=== PATIENT | female | born 1990 | race Caucasian/White ===

== ENCOUNTER 2017-03-27 15:04 | Inpatient (IN) | payer MEDICAID ==
[~2017-03-27] VITALS: Ht 170.2 cm; Wt 92.9 kg
[~2017-03-27 15:04] MED LIST: PREN1TAB49 PO
--- NOTE | 2017-03-27 16:00 | TRIAGE ---
OB Triage Datetime Report Generated by CPN: 03/27/2017 16:00 Datetime: 03/27/2017 15:18 Assessment Type: Triage Time of Arrival: 03/27/2017 14:55 EGA: 39.0 Arrived By: Ambulatory Arrived From: Home Chief Complaint: CAME IN LABOR Movement: Present Contractions: Denies/Absent Rupture of Membranes: Denies Vaginal Bleeding: None Vaginal Discharge: Denies Recent Sexual Intercouse: Denies Abdominal Trauma: Not Applicable Patient Complaints: None Time Provider Notified: 03/27/2017 15:15 Provider Notified: DR. TORIBIO Initial Plan: SVE Maternal Assessment Level of Consciousness: Fully Conscious DTR's/Clonus: DTRs 2+; No Clonus Headache: Denies Blurred Vision: No Respiratory Effort: Unlabored; Regular Rhythm; Equal Expansion Breath Sounds, Left: Clear and Equal Breath Sounds, Right: Clear and Equal Nausea/Vomiting: Denies RUQ Epigastric Pain: Denies Lower Extremities Edema: None Degree: None Upper Extremities Edema: None Degree: None Facial Edema: None Temperature Route: Axillary Fall Risk Assessment History of Falling: (0) No Secondary Diagnosis: (0) No Ambulatory Aid: (0) Bedrest/Nurse Assist IV Therapy: (0) No Gait: (0) Normal/Bedrest/Immobile Mental Status: (0) Oriented to Own Ability Fall Score: 0 Fall Risk Score Definition: No Risk: No action required Datetime: 03/27/2017 15:15 Vaginal Exam Dilatation (cms): 3.0 Effacement (%): 70 Station: -3 Exam By: EPHRAIM RN Datetime: 03/27/2017 15:13 Membrane Status: Intact
[2017-03-27] MEDS: LACTATED RINGER'S 1,000 ML IV SCH ×2 (16:08→22:13)
--- NOTE | 2017-03-27 16:16 | RADRPT ---
PROCEDURE: US OB biophysical profile. CLINICAL INDICATION: evaluation TECHNIQUE: Multiple sonographic images of the pelvis were obtained. The images were reviewed on a PACS workstation. COMPARISON: No prior studies are available for comparison. FINDINGS: There is a single viable intrauterine gestation. Cardiac activity is present with 134 beats per min braydon. There is a vertex presentation. The placenta is posterior and right lateral in location. There is no evidence of placental abrupti on. There is a mildly elevated amount of amniotic fluid with an ZAK = 25.9 cm. Biophysical profile: movement 2/2 tone 2/2. breathing 2/2 ZAK 2/2 Total 06/09 RPTAT: AA . IMPRESSION: Normal biophysical profile. Mild polyhydramnios with an ZAK of 25.9 cm. Physician Hector Date Time Electronically viewed and signed by Physician Hector on 03/27/2017 16:16 /
--- NOTE | 2017-03-27 16:18 | RADRPT ---
PROCEDURE: Obstetrical ultrasound CLINICAL INDICATION: CONTRACTIONS TECHNIQUE: Multiple sonographic images of the pelvis were obtained. The images were reviewed on a PACS workstation. COMPARISON: None FINDINGS: The cervix is not well visualized. There is a single viable intrauterine gestation. Cardiac activity is present with 143 beats per minute. There is a vertex presentation. The placenta is posterior and right lateral in location. There is no evidence for an abruption or pl acenta previa. There is a mildly elevated amount of amniotic fluid with an ZAK = 25.9 cm. Measurements were made in order to determine age. The results are as follows (cm): BPD =9.47 HC =33.63 AC =35.42 FL =7.59 Estimated gestational age by ultrasound of approximately 38 weeks, 6 days. The estimated date of delivery by ultrasound is 04/04/2017. Estimated gestational age by LMP of approximately 39 weeks, 0 days. The estimated date of delivery by LMP is 04/03/2017. EFW = 3666 grams (78th percentile) IMPRESSION: Single viable intrauterine gestation of approximately 38 weeks, 6 days . The estimated date of delivery is 04/04/2017 . Dating by ultrasound is within 1 day of dating by LMP. Mild polyhydramnios with an ZAK of 25.9 cm. Cephalic presentation. RPTAT: EE Physician Hector Date Time Electronically viewed and signed by Physician Hector on 03/27/2017 16:18 /
[2017-03-27] MEDS ORDERED: BUTORPHANOL 2 MG INJ IV PRN (16:30)
[2017-03-27] MEDS ORDERED: ACETAMINOPHEN/CODEINE #3 TAB PO PRN (16:30)
[2017-03-27] MEDS ORDERED: LIDOCAINE 1% (MPF) 30 ML INJ INJ PRN (16:30)
[2017-03-27] MEDS ORDERED: IBUPROFEN 600 MG TAB PO PRN (16:30)
[2017-03-27] MEDS ORDERED: MISOPROSTOL 200 MCG TAB PR PRN (16:30)
[2017-03-27] MEDS ORDERED: CARBOPROST 250 MCG INJ IM PRN (16:30)
[2017-03-27] MEDS ORDERED: OXYTOCIN 30 UNITS/LR 500 ML IV PRN (16:30)
[2017-03-27] MEDS ORDERED: OXYTOCIN 30 UNITS/LR 500 ML IV SCH ×2 (16:30)
[2017-03-27] MEDS ORDERED: METHYLERGONOVINE 0.2 MG INJ IM PRN (16:30)
[2017-03-27 16:36] LABS: ADD SCAN DIFF NO
[2017-03-27 16:38] LABS: BASOPHILS % 0.1 % (0.0-2.0); EOSINOPHILS # 0.1 10^3/ul (0.0-0.5); EOSINOPHILS % 0.7 % (0.0-7.0); HEMATOCRIT 36.3 % (37.0-47.0); HEMOGLOBIN 12.4 g/dl (12.0-16.0); LYMPHOCYTES # 1.4 10^3/ul (0.8-2.9); LYMPHOCYTES % 20.6 % (15.0-51.0); MEAN CORPUSCULAR HEMOGLOBIN 30.4 pg (29.0-33.0); MEAN CORPUSCULAR HGB CONC 34.2 g/dl (32.0-37.0); MEAN PLATELET VOLUME 12.4 fl (7.4-10.4); MONOCYTE # 0.5 10^3/ul (0.3-0.9); MONOCYTES % 7.4 % (0.0-11.0); NEUTROPHIL # 4.9 10^3/ul (1.6-7.5); NEUTROPHILS % 70.8 % (39.0-77.0); PLATELET COUNT 210 10^3/UL (140-415); RED BLOOD COUNT 4.08 10^6/ul (4.20-5.40); RED CELL DISTRIBUTION WIDTH 12.8 % (11.5-14.5)
[2017-03-27 16:51] VITALS: Ht 170.2 cm; Wt 92.9 kg
[2017-03-27 16:52] VITALS: BP 115/70; PULSE 78; RESP 20
[2017-03-27 16:53] LABS: INR 0.9; PARTIAL THROMBOPLASTIN TIME 30.6 Sec (25.0-35.0); PROTIME 12.1 Sec (12.2-14.2); PT RATIO 0.9
[2017-03-27] MEDS ORDERED: LACTATED RINGER'S 1,000 ML IV PRN (18:00)
--- NOTE | 2017-03-27 20:59 | HP ---
Date/Time of Note Date/Time of Note DATE: 03/27/17 TIME: 20:57 OB - History Hx of Present Chief Complaint: contractions Estimated Due Date: Apr 03, 2017 : 3 Para: 1 Spontaneous : 1 Therapeutic : 0 Care: Good Care Ultrasounds: Normal mid trimester US Obstetrical Complications: None Medical Complications: None Past Family/Social History * Past Medical, Surgical, Family and Obstetric Histories reviewed from chart. GBS Status: Negative OB Admission Exam Vital Signs Vital Signs Vital Signs Date Time Temp Pulse Resp B/P Pulse Ox O2 Delivery O2 Flow Rate FiO2 03/27/17 16:52 97.9 78 20 115/70 Room Air Physical Exam HEENT: WNL Heart: Rhythm Normal Lungs: Clear Abdomen: WNL Cervical Dilatation: 4cm Effacement: 50% Station: -1 Membranes: Intact Heart Rate: 130's Accelerations: Accelerations Present Decelerations: No Decelerations Varibility: Moderate Last 72 hours Lab Results CBC & BMP 03/27/17 16:02 OB Assessment/Plan Reason for admission: active labor Plan: Expectant Management JANIS TORIBIO MD March 27, 2017 20:59
--- NOTE | 2017-03-28 02:01 | LDN ---
Date/Time of Note Date/Time of Note DATE: 03/28/17 TIME: 01:58 Delivery Summary Weeks of Gestation 39 weeks and 1 day Placenta Delivered: Spontaneously Meconium: none Episiotomy: No Perineal laceration: 1 Laceration repair: Second degree laceration repaired with 3-0 Vicryl Anesthesia type: Local Estimated blood loss: 200 Sponge & Needle done & correct: Yes All needle counts correct: Yes Any foreign bodies felt in the: No Problems: Delivery Information Sex Infant Sex: male Apgars 1 Minute: 9 5 Minute: 9 Suctioning Nose & mouth suctioned at yair: Yes Delee suction performed: No Umbilical Cord Umbilical cord with: 3 Vessels Cord presentations: no nuchal cord Cord Blood was obtained: Yes Mother & Baby Disposition Disposition Mom & Baby to Maternity; Good: Yes JANIS TORIBIO MD March 28, 2017 02:01
[2017-03-28 03:05] VITALS: BP 137/67; PULSE 68; RESP 20
[2017-03-28] MEDS ORDERED: OXYTOCIN 30 UNITS/LR 500 ML IV PRN (03:30)
[2017-03-28] MEDS ORDERED: ACETAMINOPHEN 325 MG TAB PO PRN (03:30)
[2017-03-28] MEDS ORDERED: BENZOCAINE 20% 56 ML SPRAY TOP PRN (03:30)
[2017-03-28] MEDS ORDERED: CARBOPROST 250 MCG INJ IM PRN (03:30)
[2017-03-28] MEDS ORDERED: WITCH HAZEL/GLYCERIN PAD PR PRN (03:30)
[2017-03-28] MEDS ORDERED: DIBUCAINE 1% 30 GM OINT PR PRN (03:30)
[2017-03-28] MEDS ORDERED: MISOPROSTOL 200 MCG TAB PR PRN (03:30)
[2017-03-28] MEDS ORDERED: ACETAMINOPHEN/CODEINE #3 TAB PO PRN (03:30)
[2017-03-28] MEDS ORDERED: METHYLERGONOVINE 0.2 MG INJ IM PRN (03:30)
[2017-03-28] MEDS: LACTATED RINGER'S 1,000 ML IV* SCH ×2 (05:50→11:11)
[2017-03-28] MEDS: IBUPROFEN 600 MG TAB PO SCH ×4 (05:50→23:32)
[2017-03-28 08:00] VITALS: BP 117/61; PULSE 72; RESP 18
[2017-03-28] MEDS: SENNA/DOCUSATE NA (8.6MG/50MG) TAB PO SCH ×2 (09:35→21:05)
[2017-03-28 16:00] VITALS: BP 107/64; PULSE 72; RESP 18
[2017-03-28 20:00] VITALS: BP 118/75; PULSE 65; RESP 18
[2017-03-29 03:50] VITALS: BP 94/57; PULSE 68; RESP 18
[2017-03-29] MEDS: IBUPROFEN 600 MG TAB PO SCH ×4 (05:38→23:52)
[2017-03-29 07:41] LABS: ADD SCAN DIFF NO
[2017-03-29 07:50] LABS: BASOPHILS % 0.3 % (0.0-2.0); EOSINOPHILS # 0.1 10^3/ul (0.0-0.5); EOSINOPHILS % 1.3 % (0.0-7.0); HEMATOCRIT 37.5 % (37.0-47.0); HEMOGLOBIN 12.3 g/dl (12.0-16.0); LYMPHOCYTES # 2.7 10^3/ul (0.8-2.9); LYMPHOCYTES % 36.2 % (15.0-51.0); MEAN CORPUSCULAR HEMOGLOBIN 29.9 pg (29.0-33.0); MEAN CORPUSCULAR HGB CONC 32.8 g/dl (32.0-37.0); MEAN CORPUSCULAR VOLUME 91.2 fl (82.0-101.0); MEAN PLATELET VOLUME 12.5 fl (7.4-10.4); MONOCYTE # 0.5 10^3/ul (0.3-0.9); NEUTROPHIL # 4.1 10^3/ul (1.6-7.5); NEUTROPHILS % 54.9 % (39.0-77.0); PLATELET COUNT 192 10^3/UL (140-415); RED BLOOD COUNT 4.11 10^6/ul (4.20-5.40); RED CELL DISTRIBUTION WIDTH 13.1 % (11.5-14.5); WHITE BLOOD COUNT 7.4 10^3/ul (4.8-10.8)
[2017-03-29 08:00] VITALS: BP 110/65; PULSE 72; RESP 18
[2017-03-29] MEDS: SENNA/DOCUSATE NA (8.6MG/50MG) TAB PO SCH ×2 (09:23→20:33)
[2017-03-29 16:10] VITALS: BP 115/58; PULSE 67; RESP 18
--- NOTE | 2017-03-29 18:25 | QN ---
Documentation Comment ppd1 pt doing well vss exam wnl a/p ppd1 continue care SONYA FREED MD March 29, 2017 18:25
[2017-03-29 20:00] VITALS: BP 108/66; PULSE 72; RESP 17
[2017-03-30 04:00] VITALS: BP 121/69; PULSE 71; RESP 21
[2017-03-30] MEDS: IBUPROFEN 600 MG TAB PO SCH ×3 (05:27→17:40)
[2017-03-30 07:50] VITALS: BP 116/72; PULSE 73; RESP 18
[2017-03-30] MEDS ORDERED: DIPHTH/TET/ACEL PERTUSS (ADULT) 0.5 ML VIAL IM* ONE (09:00)
[2017-03-30] MEDS: SENNA/DOCUSATE NA (8.6MG/50MG) TAB PO SCH (09:16)
--- NOTE | 2017-03-30 13:10 | DS ---
Date/Time of Note Date/Time of Note DATE: 03/30/17 TIME: 13:09 Obstetrical Discharge Record Final Diagnosis Final Diagnosis: Term delivered Vaginal Delivery Obstetrical Delivery: Spontaneous Condition on Discharge Physical Assessment Voiding: Yes Bowel Movement: Yes Breast: Soft, non-tender Fundus: Firm Calf Tenderness: No Patient Condition: Stable JANIS TORIBIO MD March 30, 2017 13:10
[2017-03-30 16:00] VITALS: BP 100/82; PULSE 76; RESP 18
== END 2017-03-30 18:28 | disposition home or self-care (01) | DRG 775 ==
LOC: L-D 15:04 → OBT 15:04 → L-D 15:37 → OBT 15:37 → L-D 17:21 → PP1 03-28 02:50
PROVIDERS: ADMIT Obstetrics & Gynecology; ATTEND Obstetrics & Gynecology
PROC: 10E0XZZ Delivery of Products of Conception, External Approach (ICD-10-PCS; principal; 2017-03-28)
PROC: 0KQM0ZZ Repair Perineum Muscle, Open Approach (ICD-10-PCS; 2017-03-28)
DX: O70.1 Second degree perineal laceration during delivery (principal); Z37.0 Single live birth; Z3A.39 39 weeks gestation of pregnancy
CPT/HCPCS: 76815; 76818; 85025; 85610; 85730; 86592; 86900; 86901; 87340; 90715; G0463; J0595; J2590; J7120